=== PATIENT | female | born 1980 | race African-American/Black ===

== ENCOUNTER → 2021-03-23 | Day surgery (SDC) | payer OTHER ==
[~2021-03-23] VITALS: Ht 170.2 cm; Wt 111.1 kg
[~2021-03-23] MED LIST: COLACE100 MG PO; DILTIAZEM; FIBER GUMMIES2 GM PO; GAS RELIEF80 MG PO; LIDOCAINE; LISINOPRIL-HCT1 EAC2 PO; OXYCODONE-ACET1 EAC1 PO
[2021-03-23 11:38] LABS: HCG (URINE) SCREEN NEGATIVE (NEGATIVE)
[2021-03-23 12:04] LABS: BUN/CREAT RATIO (CALC) 14.7 RATIO; CREATININE 0.75 mg/dL (0.51-0.95); POTASSIUM 4.1 mmol/L (3.5-5.1)
== END | disposition home or self-care (01) ==
LOC: FAS 10:53
PROVIDERS: Anesthesiology
DX: K60.2 Anal fissure, unspecified (principal); K64.4 Residual hemorrhoidal skin tags; I10 Essential (primary) hypertension; E66.9 Obesity, unspecified; F17.210 Nicotine dependence, cigarettes, uncomplicated; Z68.39 Body mass index [BMI] 39.0-39.9, adult
CPT/HCPCS: 36415; 80048; 84703; 93005; J0585; J1100; J1170; J1885; J2250; J2405; J2704; J3010; J7120